=== PATIENT | female | born 1955 | race Caucasian/White ===

== ENCOUNTER → 2017-03-05 | Outpatient (CLI) | payer BC ==
[~2017-03-05] MED LIST: CHOL10003 PO; FLUT16SP NAS; ROSU5TAB PO
[2017-03-05 12:36] LABS: ASPARTATE AMINO TRANSFERASE 18 U/L (15-37); BLOOD UREA NITROGEN 18 mg/dL (7-18)
== END | disposition home or self-care (01) ==
LOC: STAR 11:19
PROVIDERS: ATTEND Obstetrics & Gynecology Gynecology
DX: Z01.811 Encounter for preprocedural respiratory examination (principal); M41.84 Other forms of scoliosis, thoracic region; N95.0 Postmenopausal bleeding; R32 Unspecified urinary incontinence; M06.9 Rheumatoid arthritis, unspecified; Z87.898 Personal history of other specified conditions
CPT/HCPCS: 36415; 71020; 80053; 85025; 93005

== ENCOUNTER 2017-09-07 05:28 | Day surgery (SDC) | payer BC ==
[~2017-09-07] VITALS: Ht 170.2 cm; Wt 65.8 kg
[~2017-09-07 05:28] MED LIST changes: +CETI10TA24 PO; +CYCL1DRO EACHEYE; +METH500T97 PO; +MULT-516 PO; +NAPR500T4 PO
[2017-09-07] MEDS ORDERED: LACTATED RINGERS 1,000 ML IV SCH (06:05)
[2017-09-07 06:08] VITALS: BP 124/83
[2017-09-07] MEDS ORDERED: BUPIVACAINE/PF 0.25% ONE (06:52)
[2017-09-07] MEDS ORDERED: FENTANYL PF 250 MCG/5ML ONE (07:23)
[2017-09-07] MEDS ORDERED: PROPOFOL 10 MG/ML, 20ML ONE (07:23)
[2017-09-07] MEDS ORDERED: DEXAMETHASONE 4 MG/ML, 1ML ONE ×3 (07:23→07:54)
[2017-09-07] MEDS ORDERED: ONDANSETRON 2MG/ML, 2ML ONE (07:23)
[2017-09-07] MEDS ORDERED: KETOROLAC 30 MG/1 ML ONE (07:24)
[2017-09-07] MEDS ORDERED: CEFAZOLIN 1,000 MG ONE ×2 (07:24)
[2017-09-07] MEDS ORDERED: SUCCINYLCHOLINE 20 MG/ML, 10ML ONE (07:30)
[2017-09-07] MEDS ORDERED: BUPIVACAINE/PF 0.25% IM ONE (07:48)
[2017-09-07] MEDS ORDERED: CEFOTETAN PMX 1GM/50ML 50 ML ONE (07:54)
[2017-09-07] MEDS ORDERED: FENTANYL PF 100 MCG/2ML ONE ×3 (07:58→10:43)
[2017-09-07] MEDS ORDERED: ONDANSETRON 2MG/ML, 2ML IVPush PRN (08:00)
[2017-09-07] MEDS ORDERED: OXYcodone 5 MG/5 ML ORAL.SOL UDC PO PRN ×2 (08:00→13:30)
[2017-09-07] MEDS ORDERED: OXYcodone 5 MG/5 ML ORAL.SOL UDC ONE ×2 (09:50→13:29)
[2017-09-07] MEDS: FENTANYL PF 100 MCG/2ML IV PRN ×3 (10:01→10:44)
[2017-09-07] MEDS ORDERED: HYDROmorphone 1 MG/ML, 1ML ONE (10:11)
[2017-09-07] MEDS: HYDROmorphone 1 MG/ML, 1ML IV PRN ×3 (10:13→10:33)
[2017-09-07] MEDS ORDERED: LABETALOL 5MG/ML 40ML VIAL ONE (16:09)
[2017-09-07] MEDS ORDERED: GLYCOPYRROLATE 0.2MG/1ML, 5ML ONE (16:09)
[2017-09-07] MEDS ORDERED: PHENYLEPHRINE 10 MG/ML ONE (16:09)
[2017-09-07] MEDS ORDERED: ROCURONIUM 10MG/ML,5ML ONE (16:09)
== END 2017-09-07 14:40 ==
LOC: OUT 05:28
PROVIDERS: ATTEND Specialist
DX: N87.9 Dysplasia of cervix uteri, unspecified (principal); N88.2 Stricture and stenosis of cervix uteri; E78.5 Hyperlipidemia, unspecified; Z88.6 Allergy status to analgesic agent; Z88.8 Allergy status to other drugs, medicaments and biological substances; Z91.09 Other allergy status, other than to drugs and biological substances
CPT/HCPCS: 52000; 58571; 88307; J0330; J1100; J1170; J1885; J2370; J2405; J2704; J3010; J3490; J7120; S0074; J0690